=== PATIENT | male | born 1985 | race Caucasian/White ===

== ENCOUNTER 2024-05-05 23:33 | Emergency (ER) | payer OTHER ==
[~2024-05-05] VITALS: Ht 170.2 cm; Wt 104.3 kg
[2024-05-06 00:23] VITALS: BP 131/84; PULSE 64; RESP 14; TEMP 97.1; O2SAT 99
[2024-05-06] MEDS ORDERED: HYDROcodone/APAP 5/325 MG 1 TAB TAB ONE (01:23)
[2024-05-06] MEDS: HYDROcodone/APAP 5/325 MG 1 TAB TAB PO ONE (01:25)
[2024-05-06] MEDS ORDERED: ACET-8905 PO (01:48)
== END 2024-05-06 01:59 | disposition home or self-care (01) ==
LOC: MED 23:33
DX: K08.89 Other specified disorders of teeth and supporting structures (principal); Z98.890 Other specified postprocedural states
CPT/HCPCS: 99283

== ENCOUNTER 2024-07-09 05:25 | Emergency (ER) | payer OTHER ==
[~2024-07-09] VITALS: Ht 167.6 cm; Wt 99.8 kg
[~2024-07-09 05:25] MED LIST: ACET-8905 PO
[2024-07-09 05:30] VITALS: BP 132/75; PULSE 83; RESP 19; TEMP 97.2; O2SAT 99
[2024-07-09 05:43] VITALS: O2SAT 99
[2024-07-09] MEDS: KETOROLAC 60 MG/2 ML VIAL IM ONE (06:09)
[2024-07-09] MEDS ORDERED: ACET-8905 PO (06:21)
[2024-07-09] MEDS ORDERED: IBUP-2213 PO (06:21)
== END 2024-07-09 06:10 | disposition home or self-care (01) ==
LOC: MED 05:25
DX: K08.89 Other specified disorders of teeth and supporting structures (principal); R03.0 Elevated blood-pressure reading, without diagnosis of hypertension; J45.909 Unspecified asthma, uncomplicated; Z98.890 Other specified postprocedural states; Z79.899 Other long term (current) drug therapy
CPT/HCPCS: 96372; 99283; J1885

== ENCOUNTER 2024-07-12 10:28 | Emergency (ER) | payer OTHER, MEDICAID ==
[~2024-07-12] VITALS: Ht 167.6 cm; Wt 113.4 kg
[~2024-07-12 10:28] MED LIST changes: +IBUP-2213 PO
[2024-07-12 10:47] VITALS: BP 137/89; PULSE 72; RESP 20; TEMP 98.1; O2SAT 94
[2024-07-12] MEDS: KETOROLAC 30 MG/ML VIAL IM ONE (12:02)
[2024-07-12] MEDS: BUPIVACAINE-MPF 0.25% 30 ML VIAL INJ ONE (12:04)
[2024-07-12] MEDS ORDERED: AMOX1TAB8 PO (12:11)
[2024-07-12] MEDS ORDERED: HYDR-5071 PO (12:11)
[2024-07-12 12:15] VITALS: BP 146/88; PULSE 63; RESP 20; TEMP 98; O2SAT 94
== END 2024-07-12 12:15 | disposition home or self-care (01) ==
LOC: MED 10:28
DX: K08.89 Other specified disorders of teeth and supporting structures (principal); H92.02 Otalgia, left ear; R03.0 Elevated blood-pressure reading, without diagnosis of hypertension; J45.909 Unspecified asthma, uncomplicated; Z98.890 Other specified postprocedural states; Z79.899 Other long term (current) drug therapy
CPT/HCPCS: 64400; 96372; 99284; J1885